=== PATIENT | male | born 1950 | race Caucasian/White ===

== ENCOUNTER → 2019-10-04 13:13 | Outpatient (BNVA) | payer OTHER, SELFPAY | PROVIDERS: Visit Provider Nurse Practitioner Family | DX: E11.9 Type 2 diabetes mellitus without complications (principal); Z09 Encounter for follow-up examination after completed treatment for conditions other than malignant neoplasm; Z12.11 Encounter for screening for malignant neoplasm of colon | CPT/HCPCS: 80053; 80061; 83036; 83721; 85025 ==

== ENCOUNTER → 2020-04-06 11:49 | Outpatient (BNVA) | payer OTHER, SELFPAY | PROVIDERS: Visit Provider Nurse Practitioner Family | DX: G62.9 Polyneuropathy, unspecified (principal); E11.9 Type 2 diabetes mellitus without complications; Z12.5 Encounter for screening for malignant neoplasm of prostate; N52.9 Male erectile dysfunction, unspecified; Z78.9 Other specified health status; R39.11 Hesitancy of micturition; Z68.26 Body mass index [BMI] 26.0-26.9, adult; Z71.89 Other specified counseling | CPT/HCPCS: 80053; 80061; 82043; 83036; 85025; G0103 ==

== ENCOUNTER 2020-05-22 10:44 | Inpatient (IN) | payer OTHER, SELFPAY ==
[2020-05-22] VITALS (48 sets, daily range): BP systolic 89–157; BP diastolic 37–87; PULSE 53–112; RESP 15–36; TEMP 36.9–37.1; O2SAT 87–96; BMI 25.7
--- NOTE | 2020-05-22 11:13 | XRR_ITS ---
PROCEDURE INFORMATION: Exam: XR Chest, 1 View Exam date and time: 05/22/2020 11:51 AM Age: 66 years old Clinical indication: Cough and shortness of breath; Additional info: Cough, SOB covid rule out TECHNIQUE: Imaging protocol: XR of the chest Views: 1 view. COMPARISON: No relevant prior studies available. FINDINGS: Lungs: Interstitial prominence and asymmetric left-sided airspace disease, consistent with infiltrate, in the appropriate clinical setting. Pleural space: No pleural effusion. Heart/Mediastinum: No cardiomegaly. Bones/joints: Mild degenerative change . XR/XR chest 1V portable [id number] IMPRESSION: Interstitial prominence and left-sided airspace disease, consistent with infiltrate, in the appropriate clinical setting.
--- NOTE | 2020-05-22 11:14 | ECG_ITS ---
[facility] Test Date: 2020-05-22 Pat Name: Sabino Capellan Department: Room: Gender: Male Brokerage Clerk: : 1953-12-20 Requested By: Gretchen Gunn Order Number: [id number] Keturah MD: Gloria Mcghee M.D. Measurements Intervals [place] Rate: 73 P: 102 [place]: 204 QRS: -12 QRSD: 100 T: 56 QT: 361 QTc: 398 Interpretive Statements SINUS RHYTHM NONSPECIFIC T-WAVE ABNORMALITY No previous ECG available for comparison Electronically Signed On 05-23-2020 8:20:23 CDT by Gloria Mcghee M.D. [id number]
--- NOTE | 2020-05-22 11:53 | PC.NURSE ---
portable chest xray at bedside
[2020-05-22 12:00] LABS: Basophils % 0.3 %; Hematocrit 42.2 % (42.0-52.0); Hemoglobin 14.3 g/dL (11.7-16.6); Lymphocytes # 0.8 10^3/uL (0.8-4.8); Lymphocytes % 13.1 %; Mean Corpuscular HGB Conc 33.9 g/dL (30.0-36.0); Mean Corpuscular Hemoglobin 30.9 pg (28.0-34.0); Mean Corpuscular Volume 91.1 fL (80-94); Mean Platelet Volume 9.1 fL (7.4-10.4); Monocytes # 0.3 10^3/uL (0.2-0.9); Monocytes % 5.4 %; Neutrophils # 5.04 10^3/uL (1.8-7.7); Neutrophils % 80.9 %; Nucleated Red Blood Cells % 0 %; Platelet Count 201 10^3/cmm (130-400); Red Blood Count 4.63 10^6/uL (4.1-5.3); Red Cell Distribution Width 12.5 % (12.1-15.1); White Blood Count 6.2 10^3/uL (4.0-10.0)
[2020-05-22 12:11] LABS: INR 0.98 (0.8-1.2)
[2020-05-22 12:14] LABS: D Dimer 1.03 ug/mIFEU (0-0.59); Lactic Sepsis W/Reflex 1.3 mmol/L (0.5-2.2)
--- NOTE | 2020-05-22 12:15 | PC.NURSE ---
pt swabbed for covid. pt on droplet isolation precautions. pt visitor vacated building per policy
[2020-05-22 12:17] LABS: Troponin(5th) Baseline 39 ng/L (0-15)
[2020-05-22 12:24] LABS: NT Pro B Type Natriuretic Pept 369 pg/mL (0-125)
[2020-05-22 12:35] LABS: Alanine Aminotransferase 26 U/L (0-41); Alkaline Phosphatase 52 IU/L (40-130); Aspartate Amino Transferase 46 U/L (0-40); Blood Urea Nitrogen 11 mg/dL (8-23); C Reactive Protein 82.6 mg/L (0.0-4.9); Calcium 8.7 mg/dL (8.5-10.5); Carbon Dioxide 26 mmol/L (22-29); Chloride 94 mmol/L (98-107); Globulin 3.2 g/dL (1.3-4.6); Glomerular Filtration Rate 75.2 mL/min (90-130); Glucose 166 mg/dL (65-115); Magnesium 1.9 mg/dL (1.7-2.3); Osmolality Calculated 279 mOsm/kg (285-295); Sodium 133 mmol/L (136-145); Total Bilirubin 0.6 mg/dL (0.15-1.2); Total Protein 7.2 g/dL (6.6-8.7)
[2020-05-22 12:38] LABS: Anion Gap 16.8 (5-19); Potassium 3.8 mmol/L (3.5-5.1)
[2020-05-22 13:06] LABS: Influenza A by IFA Negative (Negative); Influenza B by IFA Negative (Negative); SARS Covid-2 Antigen Positive (Negative)
--- NOTE | 2020-05-22 13:14 | ECG_ITS ---
[facility] Test Date: 2020-05-22 Pat Name: Sabino Capellan Department: Room: Gender: Male Patient Care Provider: : 1953-12-20 Requested By: Gretchen Gunn Order Number: [id number] Keturah MD: Gloria Mcghee M.D. Measurements Intervals [place] Rate: 71 P: [place]: -1 QRS: 8 QRSD: 97 T: 75 QT: 374 QTc: 409 Interpretive Statements SINUS RHYTHM No previous ECG available for comparison Electronically Signed On 05-23-2020 9:02:44 CDT by Gloria Mcghee M.D. [id number]
--- NOTE | 2020-05-22 13:29 | ED_ITS ---
HPI - SOB/Dyspnea General: Chief Complaint: Nausea/Vomiting/Diarrhea Stated Complaint: COUGH N/D Time Seen by Provider: 05/22/20 10:54 History of Present Illness: HPI Narrative: This patient is a 66-year-old male with history of diabetes. He takes oral medications for that. He presents today with a week of feeling very fatigued and tired. He has had general weakness. He complains of cough. He also has had fevers and sweats. He has not been able to do his normal activities because of his symptoms. He is also had some diarrhea. He has not taken his diabetes medicines in the past 2 days because he has not really been able to eat anything. MD elicited complaint: shortness of breath and cough Pertinent past history: diabetes Onset (ago): week(s) (1) Timing: constant and progressively worsening Severity: severe Exacerbating factors: exertion and talking Relieving factors: nothing Known history of: diabetes Associated symptoms: Reports cough, fever(s) and myalgias; Deny abdominal pain, chest pain, nausea or vomiting Treatment prior to arrival: none Review of Systems General: Reports: 10 or more systems reviewed and unremarkable except in HPI and below Const: Reports: fever(s) Eyes: Denies: change in vision ENMT: Denies: odynophagia Card: Denies: chest pain or swelling of feet/ankles Resp: Reports: dyspnea and non-productive cough; Denies: productive cough GI: Denies: abdominal pain, nausea or vomiting : Denies: flank pain Musc: Denies: neck pain or back pain Skin/Breast: Denies: rash Neuro: Denies: headache(s), numbness in extremities or weakness in extremities Lyle/Lymph: Denies: easy bruising or easy bleeding PFSH ED PFSH: Medical History (Updated 05/22/20 @ 15:37 by Abdias Wells MD) BPH (benign prostatic hyperplasia) Diabetes mellitus Surgical History (Updated 05/22/20 @ 15:33 by Abdias Wells MD) History of cholecystectomy Family History (Updated 05/22/20 @ 15:34 by Abdias Wells MD) Other Cancer Social History (Updated 05/22/20 @ 15:34 by Abdias Wells MD) Smoking and tobacco status: never smoked Alcohol intake: never Physical Exam Const: COMMON NORMALS: no acute distress, patient oriented x3, no limitations and alert GENERAL APPEARANCE: cooperative HENMT: HEAD & SCALP: normal to inspection FACE & SINUS: normal facial exam Eye: GENERAL EYE: appearance normal, both eyes and all related structures Neck/C-Spine: COMMON NORMALS: supple, no meningeal signs and no JVD Chest: COMMONS NORMALS: normal inspection of the chest Resp: EFFORT & INSPECTION: Yes tachypneic and Yes labored AUSCULTATION: rhonchi lower bilaterally Cardio: COMMON NORMALS: no JVD, regular rate, regular rhythm and No murmurs present (Cardio) RATE: regular rate RHYTHM: regular rhythm GI: COMMON NORMALS: Normal to inspection, nondistended, normoactive bowel sounds present, Soft to palpation and non-tender INSPECTION: Yes normal to inspection AUSCULTATION: Yes normoactive bowel sounds PALPATION: Yes Soft to palpation Back/Pelvis: COMMON NORMALS: thoracic and lumbar spine normal to inspection Extremity: COMMON NORMALS: normal to inspection Neuro: COMMON NORMALS: patient oriented x3, moves all extremities, no focal motor deficits and no sensory deficits noted SENSORIUM/ORIENTATION: Yes alert MENINGEAL SIGNS: Yes no meningeal signs Psych: COMMON NORMALS: mental status grossly normal, cooperative and normal affect Skin: COMMON NORMALS: no rashes or lesions noted and turgor normal GENERAL SKIN EXAM: no rashes or lesions noted and turgor normal Course ED course: This patient is a generally healthy active 66-year-old. He comes in with a week of fatigue and cough and shortness of breath. He has no known covert exposures. He is generally a pretty well controlled diabetic on oral medications. His initial saturation was 87%. This was on room air. On 4 L nasal cannula he is running 90 to 93%. He does not appear to have any respiratory distress. He is a little bit tachypneic. He was surprised to hear the diagnosis of COVID. He was also surprised that I recommended admission to the hospital but I explained that with his oxygen level being as low as it is he will probably benefit from admission and treatment with Decadron, remdesivir. I also gave him a dose of Lovenox in the ED. He is agreeable to admission. Vital Signs: Vital signs: Vital Signs Temperature 98.3 F 05/24/20 22:12 Pulse Rate 57 L 05/24/20 22:12 Respiratory Rate 24 H 05/24/20 22:12 Blood Pressure 109/69 05/24/20 20:00 Pulse Oximetry 89 L 05/24/20 22:12 MDM - SOB/Dyspnea Lab Data: Labs: Lab Results 05/22/20 05/22/20 05/22/20 Range/Units 11:20 11:20 11:20 WBC 6.2 (4.0-10.0) 10^3/ uL RBC 4.63 (4.1-5.3) 10^6/u L Hgb 14.3 (11.7-16.6) g/dL Hct 42.2 (42.0-52.0) % MCV 91.1 (80-94) fL MCH 30.9 (28.0-34.0) pg MCHC 33.9 (30.0-36.0) g/dL RDW 12.5 (12.1-15.1) % Plt Count 201 (130-400) 10^3/c mm MPV 9.1 (7.4-10.4) fL Neut % (Auto) 80.9 % Lymph % (Auto) 13.1 % [place] % (Auto) 5.4 % Eos % (Auto) 0.0 % Baso % (Auto) 0.3 % Neut # (Auto) 5.04 (1.8-7.7) 10^3/u L Lymph # (Auto) 0.8 (0.8-4.8) 10^3/u L [place] # (Auto) 0.3 (0.2-0.9) 10^3/u L Eos # (Auto) 0.0 (0.0-0.8) 10^3/u L Baso # (Auto) 0.0 (0.0-0.1) 10^3/u L Nucleated RBC % (a uto) 0 % Nucleated RBCs # 0.0 /100WBC PT 13.30 (12.1-14.9) SECO NDS INR 0.98 (0.8-1.2) D-Dimer 1.03 H (0-0.59) ug/mIFE U Sodium 133 L (136-145) mmol/L Potassium 3.8 (3.5-5.1) mmol/L Chloride 94 L (98-107) mmol/L Carbon Dioxide 26 (22-29) mmol/L Anion Gap 16.8 (5-19) BUN 11 (8-23) mg/dL Creatinine 1.0 (0.7-1.2) mg/dL GFR Calculation 75.2 L (90-130) mL/min Glucose 166 H (65-115) mg/dL Calculated Osmolal ity 279 L (285-295) mOsm/k g Lactic Acid (0.5-2.2) mmol/L Calcium 8.7 (8.5-10.5) mg/dL Magnesium 1.9 (1.7-2.3) mg/dL Total Bilirubin 0.6 (0.15-1.2) mg/dL AST 46 H (0-40) U/L ALT 26 (0-41) U/L Alkaline Phosphata se 52 (40-130) IU/L Troponin T Baselin e (0-15) ng/L Troponin T 120 Min edilma (0-15) ng/L Delta Troponin T (0-10) ABS# C-Reactive Protein 82.6 H (0.0-4.9) mg/L NT-Pro-B Natriuret Pep 369 H (0-125) pg/mL Total Protein 7.2 (6.6-8.7) g/dL Albumin 4.0 (3.5-5.2) g/dL Globulin 3.2 (1.3-4.6) g/dL Procalcitonin 0.20 (0-0.5) ng/mL Influenza Type A A g (Negative) Influenza Type B A g (Negative) SARS-CoV-2 Ag (Rap id) (Negative) 05/22/20 05/22/20 05/22/20 Range/Units 11:20 11:20 12:10 WBC (4.0-10.0) 10^3/ uL RBC (4.1-5.3) 10^6/u L Hgb (11.7-16.6) g/dL Hct (42.0-52.0) % MCV (80-94) fL MCH (28.0-34.0) pg MCHC (30.0-36.0) g/dL RDW (12.1-15.1) % Plt Count (130-400) 10^3/c mm MPV (7.4-10.4) fL Neut % (Auto) % Lymph % (Auto) % [place] % (Auto) % Eos % (Auto) % Baso % (Auto) % Neut # (Auto) (1.8-7.7) 10^3/u L Lymph # (Auto) (0.8-4.8) 10^3/u L [place] # (Auto) (0.2-0.9) 10^3/u L Eos # (Auto) (0.0-0.8) 10^3/u L Baso # (Auto) (0.0-0.1) 10^3/u L Nucleated RBC % (a uto) % Nucleated RBCs # /100WBC PT (12.1-14.9) SECO NDS INR (0.8-1.2) D-Dimer (0-0.59) ug/mIFE U Sodium (136-145) mmol/L Potassium (3.5-5.1) mmol/L Chloride (98-107) mmol/L Carbon Dioxide (22-29) mmol/L Anion Gap (5-19) BUN (8-23) mg/dL Creatinine (0.7-1.2) mg/dL GFR Calculation (90-130) mL/min Glucose (65-115) mg/dL Calculated Osmolal ity (285-295) mOsm/k g Lactic Acid 1.3 (0.5-2.2) mmol/L Calcium (8.5-10.5) mg/dL Magnesium (1.7-2.3) mg/dL Total Bilirubin (0.15-1.2) mg/dL AST (0-40) U/L ALT (0-41) U/L Alkaline Phosphata se (40-130) IU/L Troponin T Baselin e 39 H (0-15) ng/L Troponin T 120 Min edilma (0-15) ng/L Delta Troponin T (0-10) ABS# C-Reactive Protein (0.0-4.9) mg/L NT-Pro-B Natriuret Pep (0-125) pg/mL Total Protein (6.6-8.7) g/dL Albumin (3.5-5.2) g/dL Globulin (1.3-4.6) g/dL Procalcitonin (0-0.5) ng/mL Influenza Type A A g (Negative) Influenza Type B A g (Negative) SARS-CoV-2 Ag (Rap id) Positive H (Negative) 05/22/20 05/22/20 Range/Units 12:10 13:31 WBC (4.0-10.0) 10^3/ uL RBC (4.1-5.3) 10^6/u L Hgb (11.7-16.6) g/dL Hct (42.0-52.0) % MCV (80-94) fL MCH (28.0-34.0) pg MCHC (30.0-36.0) g/dL RDW (12.1-15.1) % Plt Count (130-400) 10^3/c mm MPV (7.4-10.4) fL Neut % (Auto) % Lymph % (Auto) % [place] % (Auto) % Eos % (Auto) % Baso % (Auto) % Neut # (Auto) (1.8-7.7) 10^3/u L Lymph # (Auto) (0.8-4.8) 10^3/u L [place] # (Auto) (0.2-0.9) 10^3/u L Eos # (Auto) (0.0-0.8) 10^3/u L Baso # (Auto) (0.0-0.1) 10^3/u L Nucleated RBC % (a uto) % Nucleated RBCs # /100WBC PT (12.1-14.9) SECO NDS INR (0.8-1.2) D-Dimer (0-0.59) ug/mIFE U Sodium (136-145) mmol/L Potassium (3.5-5.1) mmol/L Chloride (98-107) mmol/L Carbon Dioxide (22-29) mmol/L Anion Gap (5-19) BUN (8-23) mg/dL Creatinine (0.7-1.2) mg/dL GFR Calculation (90-130) mL/min Glucose (65-115) mg/dL Calculated Osmolal ity (285-295) mOsm/k g Lactic Acid (0.5-2.2) mmol/L Calcium (8.5-10.5) mg/dL Magnesium (1.7-2.3) mg/dL Total Bilirubin (0.15-1.2) mg/dL AST (0-40) U/L ALT (0-41) U/L Alkaline Phosphata se (40-130) IU/L Troponin T Baselin e (0-15) ng/L Troponin T 120 Min edilma 35.15 H (0-15) ng/L Delta Troponin T -3.85 L (0-10) ABS# C-Reactive Protein (0.0-4.9) mg/L NT-Pro-B Natriuret Pep (0-125) pg/mL Total Protein (6.6-8.7) g/dL Albumin (3.5-5.2) g/dL Globulin (1.3-4.6) g/dL Procalcitonin (0-0.5) ng/mL Influenza Type A A g Negative (Negative) Influenza Type B A g Negative (Negative) SARS-CoV-2 Ag (Rap id) (Negative) Discharge Plan Discharge Patient Disposition: Admitted As Inpatient Admit Provider: Abdias Wells Condition: Stable Discharge Date/Time: 05/22/20 16:30 Coding Level of Care Code ED Qa Consultant for [facility] Fwd Exam Comprehensive
[2020-05-22] MEDS: sodium chloride 0.9% 1,000 ML 150 ML IV ×2 (13:35→22:10)
[2020-05-22] MEDS: enoxaparin 100 mg/mL Syringe 90 MG SUBCUT (13:35)
[2020-05-22] MEDS: dexamethasone 10 mg/mL INJ IVP (13:36)
[2020-05-22 13:54] LABS: Troponin 5 2HR 35.15 ng/L (0-15)
[2020-05-22 14:03] LABS: Troponin 5 2HR Delta -3.85 ABS# (0-10)
--- NOTE | 2020-05-22 14:13 | CT_ITS ---
WS: [id number] CT CHEST ANGIOGRAPHY WITH REFORMATS HISTORY: COVID, possible mass TECHNIQUE: Contiguous axial images are obtained through the chest during arterial injection of intrav enous contrast. Images are reconstructed to evaluate the pulmonary arteries. MIP imaging also reviewe d. All CT scans at [facility] use at least one of these dose optimization techniques: aut omated exposure control; mA and/or kV adjustment per patient size (includes targeted exams where dose is matched to clinical indication); or iterative reconstruction. CONTRAST: Omnipaque 350; 95 mL IV. DLP: 580.13 mGy.cm COMPARISON: None available. Good opacification of the pulmonary arteries. There are no filling defects. No pulmonary embolism. No rmal size aorta. Bilateral groundglass opacifications and partial consolidation throughout all lobes. No discrete mass identified. No pleural effusion. RIGHT hilar enlarged lymph nodes measuring 1.8 cm are probably reactive. Heart is enlarged. Small hiatal hernia. Prior cholecystectomy. CT/CT angio chest PE protcl [id number] IMPRESSION: 1. No pulmonary embolism. 2. Multilobar groundglass attenuation consolidation. Consider Covid 19.
--- NOTE | 2020-05-22 15:31 | P.HP_ITS ---
Providers/Chief Complaint Admitting Physician: Abdias Wells MD Chief Complaint: COUGH N/D History of Present Illness Sabino Fritz is a 66 year old male with history about 6 days of illness. He has had cough. Not productive. Not much congestion. Short of breath today. Very weak, tired. He admits to fevers. Some nausea and loose stools but no diarrhea. While in the emergency department he was found to be hypoxic, placed on 2 L of oxygen, and diagnosed with COVID. He denies any chest pain, or leg tenderness. Review of Systems General: Reports: 10 or more systems reviewed and unremarkable except in HPI and below Const: Reports: fever(s), chills, body aches and malaise Eyes: Denies: change in vision ENMT: Denies: throat pain Card: Denies: chest pain Resp: Reports: dyspnea and non-productive cough GI: Reports: nausea and diarrhea; Denies: abdominal pain : Denies: flank pain Musc: Denies: neck pain Skin/Breast: Denies: rash Neuro: Denies: headache(s) Psych: Denies: anxiety Endo: Denies: polyuria Lyle/Lymph: Denies: easy bruising All/Imm: Denies: urticaria Medications/Allergies Home Medications Medication Instructions Recorded Confirmed Last Taken Type gabapentin 300 mg PO BEDTIME 05/22/20 05/22/20 05/21/20 History glipizide 5 mg PO BID 05/22/20 05/22/20 05/22/20 History metformin 1,000 mg PO BID 05/22/20 05/22/20 05/22/20 History tamsulosin 0.4 mg PO DAILY 05/22/20 05/22/20 05/22/20 History Allergies Allergy/AdvReac Type Severity Reaction Status Date / Time No Known Allergies Allergy Verified 05/22/20 10:50 PFSH Acute PFSH: Medical History (Updated 05/22/20 @ 15:37 by Abdias Wells MD) BPH (benign prostatic hyperplasia) Diabetes mellitus Surgical History (Updated 05/22/20 @ 15:33 by Abdias Wells MD) History of cholecystectomy Family History (Updated 05/22/20 @ 15:34 by Abdias Wells MD) Other Cancer Social History (Updated 05/22/20 @ 15:34 by Abdias Wells MD) Smoking and tobacco status: never smoked Alcohol intake: never Vitals/I&O/Wt Last Vital Signs Temp 98.5 F 05/22/20 10:46 Pulse 112 H 05/22/20 14:36 Resp 26 H 05/22/20 14:36 BP 119/67 05/22/20 14:36 Pulse Ox 92 05/22/20 14:36 Weight last 48 hrs Weight 90.718 kg Physical Exam Narrative: EXAM NARRATIVE: General exam is a white male, no apparent distress HEENT: Pupils equally round. Oropharynx clear. Neck is supple no lymphadenopathy, thyromegaly Cardiovascular regular rate and rhythm without murmur, no S3 or S4 Lungs a few bilateral crackles Abdomen is soft nontender with positive bowel sounds. No obvious organomegaly was deferred Extremities no cyanosis clubbing or edema, cap refill brisk Skin no rash Neuro no focal deficits. Data : 05/22/20 11:20 05/22/20 11:20 Other data: D-dimer 1.03. Lactic acid normal Magnesium level normal AST 46 Troponin 39 with repeat 35 BNP 369 CRP 83 Procalcitonin level 0.2 Rapid COVID positive, influenza negative Chest x-ray with interstitial infiltrates left side predominance CTA pending EKG demonstrates sinus rhythm, normal axis, nonspecific ST-T wave changes A&P Assessment and plan (1) Pneumonia due to COVID-19 virus: Initiate dexamethasone 6 mg IV daily Start Remdesivir Hydration overnight secondary to decreased p.o. intake recently causing mild dehydration Repeat inflammatory levels in the morning Lovenox for DVT prophylaxis Oxygen for supportive care Will review CTA when available. Status: Acute (2) Respiratory failure: Oxygen as needed. Wean as tolerated Status: Acute (3) Elevated troponin: Type II. No significant delta. Status: Acute Additional A&P Information Type 2 diabetes. Sliding scale insulin History of BPH, continue Flomax Full code Lovenox for DVT prophylaxis Attestations Medical Necessity Statement*: Will need greater than 2 midnight stay for treatment of Covid 19 pneumonia Time Spent in Patient Care: Greater than 35 minutes Coding Level of Care Code Acute Glove Machine Operator for [facility] Fwd Diagnoses Pneumonia due to COVID-19 virus U07.1; J12.89 Respiratory failure J96.90 Elevated troponin R79.89
[2020-05-22 16:21] LABS: Add Urine Microscopic? YES; Bilirubin Urine Neg (Negative); Blood Urine Neg (Negative); Glucose Urine UA Norm (Normal); Ketones Urine Negative (Negative); Leukocyte Esterase Urine Negative (Negative); Nitrate Urine Negative (Negative); Protein Urine 1+ (Negative); Urine Appearance Clear (CLEAR); Urine Color Yellow (Yellow); Urobilinogen Urine Norm (Negative); pH Urine 5 (5-7)
[2020-05-22 16:22] LABS: Mucus Urine 3+ /hpf; Squamous Epithelial Cell Urine 0-4 /hpf (0-5); WBC Urine 0-4 /hpf (0-5)
[2020-05-22 16:23] LABS: Add Urine Culture? No; Bacteria Urine 1+ /hpf
--- NOTE | 2020-05-22 17:14 | ECG_ITS ---
[facility] ED Test Date: 2020-05-22 Pat Name: Sabino Fritz Department: Room: ICU19 Gender: Male Director Radio News: : 1953-12-20 Requested By: Gretchen Gunn Order Number: [id number] Keturah MD: Gloria Mcghee M.D. Measurements Intervals [place] Rate: 65 P: 86 [place]: 199 QRS: -20 QRSD: 101 T: 79 QT: 393 QTc: 411 Interpretive Statements SINUS RHYTHM SEPTAL MYOCARDIAL INFARCTION [40+ ms Q WAVE IN V1/V2], PROBABLY OLD No previous ECG available for comparison Electronically Signed On 05-23-2020 8:56:28 CDT by Gloria Mcghee M.D. [id number]
[2020-05-22] MEDS: gabapentin 300 mg Capsule PO (20:34)
[2020-05-23] VITALS (74 sets, daily range): BP systolic 84–128; BP diastolic 40–72; PULSE 46–72; RESP 18–37; TEMP 36–36.9; O2SAT 84–97
[2020-05-23 05:24] LABS: Basophils % 0.2 %; Hematocrit 37.6 % (42.0-52.0); Hemoglobin 12.3 g/dL (11.7-16.6); Lymphocytes % 17.8 %; Mean Corpuscular HGB Conc 32.7 g/dL (30.0-36.0); Mean Corpuscular Hemoglobin 30.3 pg (28.0-34.0); Mean Corpuscular Volume 92.6 fL (80-94); Mean Platelet Volume 9.5 fL (7.4-10.4); Monocytes # 0.5 10^3/uL (0.2-0.9); Monocytes % 8.2 %; Neutrophils # 4.27 10^3/uL (1.8-7.7); Neutrophils % 73.3 %; Nucleated Red Blood Cells % 0 %; Platelet Count 204 10^3/cmm (130-400); Red Blood Count 4.06 10^6/uL (4.1-5.3); Red Cell Distribution Width 12.5 % (12.1-15.1); White Blood Count 5.8 10^3/uL (4.0-10.0)
[2020-05-23 05:57] LABS: Alanine Aminotransferase 27 U/L (0-41); Albumin Level 3.5 g/dL (3.5-5.2); Alkaline Phosphatase 53 IU/L (40-130); Anion Gap 14.4 (5-19); Aspartate Amino Transferase 32 U/L (0-40); Blood Urea Nitrogen 18 mg/dL (8-23); C Reactive Protein 104.2 mg/L (0.0-4.9); Carbon Dioxide 27 mmol/L (22-29); Chloride 99 mmol/L (98-107); Globulin 2.3 g/dL (1.3-4.6); Glomerular Filtration Rate 75.2 mL/min (90-130); Glucose 195 mg/dL (65-115); Osmolality Calculated 289 mOsm/kg (285-295); Potassium 4.4 mmol/L (3.5-5.1); Sodium 136 mmol/L (136-145); Total Bilirubin 0.4 mg/dL (0.15-1.2); Total Protein 5.8 g/dL (6.6-8.7)
[2020-05-23 05:58] LABS: Procalcitonin 0.29 ng/mL (0-0.5)
[2020-05-23 06:09] LABS: Ferritin 473 ng/mL (30-400)
[2020-05-23 06:10] LABS: D Dimer 0.72 ug/mIFEU (0-0.59)
[2020-05-23 08:19] LABS: Glucose Point of Care 137 mg/dL (70-110)
[2020-05-23] MEDS: sodium chloride 0.9% 1,000 ML 150 ML IV (09:09)
[2020-05-23] MEDS: dexamethasone 4 mg Tablet 6 MG PO (09:09)
[2020-05-23] MEDS: zinc gluconate 50 mg Tablet PO (09:10)
[2020-05-23] MEDS: ascorbic acid 500 mg Tablet PO (09:10)
[2020-05-23] MEDS: tamsulosin 0.4 mg Capsule PO (09:10)
[2020-05-23 11:15] LABS: Glucose Point of Care 179 mg/dL (70-110)
--- NOTE | 2020-05-23 13:00 | PC.NURSE ---
pt moved to different room to accommodate heated high flow. pt resting in bed call light within reach. will continue to monitor.
[2020-05-23] MEDS: enoxaparin 40 mg/0.4 mL Syringe SUBCUT (13:40)
--- NOTE | 2020-05-23 14:23 | PM.PN ---
Subjective Subjective: Interval history: Sabino reports he is feeling better than yesterday. Less short of breath, but certainly requiring more oxygen. Medications: Reviewed: Yes Vitals/I&O/Wt Last Vital Signs Temp 97.6 F 05/23/20 08:00 Pulse 66 05/23/20 13:45 Resp 20 H 05/23/20 13:45 BP 112/69 05/23/20 12:00 Pulse Ox 91 05/23/20 13:45 05/22/20 05/23/20 05/23/20 22:59 06:59 14:59 Intake Total 1550 / 1550 1250 / 2800 360 / 360 Output Total 600 / 600 Balance 1550 / 1550 650 / 2200 360 / 360 Weight last 48 hrs Weight 90.718 kg Physical Exam Narrative: EXAM NARRATIVE: General exam is a white male, no apparent distress Cardiovascular regular rate and rhythm without murmur, no S3 or S4 Lungs try crackles bilaterally Abdomen is soft nontender with positive bowel sounds. No obvious organomegaly Extremities no cyanosis clubbing or edema, cap refill brisk Data : 05/23/20 04:40 05/23/20 04:40 A&P Assessment and plan (1) Pneumonia due to COVID-19 virus: Continue dexamethasone 6 mg IV daily Continue Remdesivir At this point hydration can be discontinued CRP higher. Dimer lower. Procalcitonin level normal. Add Levaquin in case superimposed bacterial infection is present as hypoxia is worsening Lovenox for DVT prophylaxis He has progressed to heated high flow at an FiO2 of 55% CTA demonstrated no pulmonary embolism Status: Acute (2) Respiratory failure: Oxygen as needed. Wean as tolerated Status: Acute (3) Elevated troponin: Type II. No significant delta. Status: Acute Additional A&P Information Type 2 diabetes. Sliding scale insulin History of BPH, continue Flomax Full code Lovenox for DVT prophylaxis Attestations Medical Necessity Statement*: Needs continued hospitalization secondary to Covid 19 pneumonia requiring antiviral, steroids, supportive care Coding Level of Care Code Acute Master Control Technician for [facility] Fw Diagnoses Pneumonia due to COVID-19 virus U07.1; J12.89 Respiratory failure J96.90 Elevated troponin R79.89
[2020-05-23] MEDS: levofloxacin-dextrose 5 % 750 MG/150 ML PREMIX 100 MG IV (15:16)
--- NOTE | 2020-05-23 17:07 | PC.NURSE ---
blood sugar taken, results 323.
--- NOTE | 2020-05-23 18:03 | PC.NURSE ---
pt had an uneventful shift. pt educated on laying prone. call light within reach, will continue to monitor.
[2020-05-23 20:26] LABS: Glucose Point of Care 304 mg/dL (70-110)
[2020-05-23] MEDS: gabapentin 300 mg Capsule PO (20:57)
[2020-05-24] VITALS (21 sets, daily range): BP systolic 100–126; BP diastolic 50–90; PULSE 48–65; RESP 13–30; TEMP 36.6–36.9; O2SAT 89–99
--- NOTE | 2020-05-24 01:35 | PC.NURSE ---
Pt oxygen saturation dropped to 85%-87%. High flow turned up to 60 liters previously 50 liters. Patient saturations continued to drop to 85%-87%. Patient turned to prone position improving oxygen saturations to 90%. Will continue to monitor.
--- NOTE | 2020-05-24 02:42 | PC.NURSE ---
Respiratory notified Respiratory called due to patient being SOB and visibly struggling to catch his breath with saturations being 85%-897% on 60 liters 60%. Patient previously laid prone for approximately 1 hr. High flow turned up to 60 liters 70%. Respiratory assessed and notified Dr. Galindo. Dr. Galindo ordered patient to be placed on Bipap. Will continue to monitor.
--- NOTE | 2020-05-24 03:44 | PC.NURSE ---
Pt is resting well on Bipap with no respiratory distress oxygen saturation is 95%. Will continue to monitor.
[2020-05-24 05:28] LABS: Basophils % 0.1 %; Hematocrit 36.4 % (42.0-52.0); Lymphocytes # 1.3 10^3/uL (0.8-4.8); Lymphocytes % 17.6 %; Mean Corpuscular Hemoglobin 30.8 pg (28.0-34.0); Mean Corpuscular Volume 93.3 fL (80-94); Mean Platelet Volume 10.1 fL (7.4-10.4); Monocytes # 0.5 10^3/uL (0.2-0.9); Monocytes % 6.6 %; Neutrophils # 5.35 10^3/uL (1.8-7.7); Neutrophils % 75.3 %; Nucleated Red Blood Cells % 0 %; Platelet Count 217 10^3/cmm (130-400); Red Cell Distribution Width 12.8 % (12.1-15.1); White Blood Count 7.1 10^3/uL (4.0-10.0)
[2020-05-24 05:54] LABS: Alanine Aminotransferase 23 U/L (0-41); Albumin Level 3.3 g/dL (3.5-5.2); Alkaline Phosphatase 51 IU/L (40-130); Anion Gap 15.4 (5-19); Aspartate Amino Transferase 27 U/L (0-40); Blood Urea Nitrogen 24 mg/dL (8-23); Calcium 8.3 mg/dL (8.5-10.5); Carbon Dioxide 26 mmol/L (22-29); Chloride 102 mmol/L (98-107); Globulin 2.9 g/dL (1.3-4.6); Glomerular Filtration Rate 84.2 mL/min (90-130); Glucose 193 mg/dL (65-115); Osmolality Calculated 297 mOsm/kg (285-295); Potassium 4.4 mmol/L (3.5-5.1); Sodium 139 mmol/L (136-145); Total Bilirubin 0.4 mg/dL (0.15-1.2); Total Protein 6.2 g/dL (6.6-8.7)
--- NOTE | 2020-05-24 06:35 | PC.NURSE ---
Patient continuing to removed bipap to urinate and has desate in the 70s. Notified Dr. Galindo and received order for insert urinary catheter.
--- NOTE | 2020-05-24 07:11 | XRR_ITS ---
PROCEDURE INFORMATION: Exam: XR Chest, 1 View Exam date and time: 05/24/2020 8:13 AM Age: 69 years old Clinical indication: Condition or disease; Lung condition and disease; Other: Covid; Additional info: SOB TECHNIQUE: Imaging protocol: XR of the chest Views: Frontal portable upright view of the chest. COMPARISON: CT angio chest PE protcl [id number] 05/22/2020 2:51 PM FINDINGS: Tubes, catheters and devices: EKG leads are present overlying the chest. Lungs: Improved right inferior parahilar atelectasis. Otherwise stable heterogeneous air space opacities in the bilateral lungs (predominating in the peripheral mid upper chest.). The pulmonary vasculature is normal. Pleural space: No pleural effusion. No pneumothorax. Heart/Mediastinum: The heart is normal in size and contour. Mediastinum: Stable. Bones/joints: Stable. Organs: The gallbladder is likely surgically absent, with metallic clips overlying the gallbladder fossa. XR/XR chest 1V portable [id number] IMPRESSION: 1. Improved right inferior parahilar atelectasis. 2. Otherwise stable bilateral pulmonary infiltrates. 3. Prior cholecystectomy.
[2020-05-24 07:46] LABS: ABG PCO2 35.5 mmHg (35-45); ABG PH Result 7.46 (7.35-7.45); Arterial Blood Gas Hematocrit 39.6 % (42-52); Base Excess ABG 1.7 mmol/L (-2.0-2.0); Blood Gas Allen Test Pos; Blood Gas Operator Identificat MONRO; Blood Gas Sample Site Radial, left; Blood Gas Sample Type Arterial; HCO3 ABG 25.3 mmol/L (22-26); Oxygen Device BIPAP; PO2 ABG 71.4 mmHg (80.0-100.0)
[2020-05-24 08:00] LABS: Glucose Point of Care 149 mg/dL (70-110)
[2020-05-24] MEDS: ascorbic acid 500 mg Tablet PO (10:00)
[2020-05-24] MEDS: dexamethasone 4 mg Tablet 6 MG PO (10:00)
[2020-05-24] MEDS: zinc gluconate 50 mg Tablet PO (10:00)
[2020-05-24] MEDS: tamsulosin 0.4 mg Capsule PO (10:04)
--- NOTE | 2020-05-24 11:10 | PC.NURSE ---
patient restless, hearing and cognition preventing him from totally understanding the seriousness of his condition. xray done, churchill placed but the balloon did not inflate and and thus required second churchill placed. he does have occassional bladder spasms now with tiney leak at the urethra. trying to explain that he needs to pronate is difficult for him to understand
[2020-05-24] MEDS: enoxaparin 40 mg/0.4 mL Syringe SUBCUT (12:18)
[2020-05-24 13:13] LABS: Glucose Point of Care 172 mg/dL (70-110)
--- NOTE | 2020-05-24 14:00 | PM.TDS ---
Transfer Summary Providers Date of Admission: 05/22/20 14:13 Date of Discharge: 05/24/20 Attending Provider at Admission: Abdias Wells MD Attending Provider at Transfer: Abdias Wells MD Anticipated Date of Transfer: Anticipated date of transfer: 05/24/20 Receiving Facility & Provider: Receiving Provider: [Dr. Joseph] Receiving facility: [[facility]] Diagnoses at Discharge Discharge Diagnosis (1) Pneumonia due to COVID-19 virus: Status: Acute (2) Respiratory failure: Status: Acute (3) Elevated troponin: Status: Acute Reason for Visit Reason for Visit: COUGH N/D Hospital Course Hospital Course: Mr. Fritz is a 69-year-old white male with diabetes and BPH who presented to the hospital with history of 6 days of illness with cough congestion and ultimately culminating in shortness of breath. In the emergency department he had a rapid COVID test that was positive, and required oxygen for hypoxia. Procalcitonin level was normal. He was placed in the hospital on anticoagulation consisting of Lovenox, oxygen, dexamethasone, remdesivir. He received pulmonary toilet when needed, incentive spirometry, as well as Levaquin in case coexistent bacterial pneumonia was present. During the course of his hospital stay he required more oxygen, starting heated high flow on May 23. Through the night he required such high levels of FiO2 despite pronating that he was placed on BiPAP. During the morning of May 24 he was on 90% FiO2 by BiPAP, proned. Decision at that time was to transfer to [facility] in [place] as it appeared he may need intubated, plasma or other therapies that are not available here. I discussed his case with Dr. Joseph who graciously accepted his care, pending an available bed. In the interim the patient was able to come off BiPAP for a while and be placed back on heated high flow at 70% FiO2 and a flow rate of 45 L/min pending transfer. Physical Exam Narrative: EXAM NARRATIVE: General exam, tachypneic Cardiovascular regular rate and rhythm without murmur Lungs scattered dry crackles Abdomen is soft with positive bowel sounds Extremities no cyanosis clubbing or edema Urinary Catheter Management^: Ward: Cath Placed During This Visit: yes Reason for Continuing Indwelling Catheter: Accurate Measurement of Urinary Output in Critically Ill Patients Urinary Catheter Date of Insertion: 05/24/20 Urinary Catheter Time of Insertion: 07:30 TS Data Data Completed and Pending: Completed Studies During Hospitalization Category Date Time Status CT angio chest PE protcl [id number] Urge nt Cat Scan 05/22/20 14:13 Completed XR chest 1V damien ble [id number] Stat Exams 05/22/20 11:13 Completed XR chest 1V damien ble [id number] Stat Exams 05/24/20 07:11 Completed Pending at discharge Category Date Time Status Complete Blood Co unt w/Auto AM LABS Lab 05/25/20 04:00 Ordered Comprehensive Met abolic Panel AM LA BS Lab 05/25/20 04:00 Ordered Labs from last 24 hours 05/24/20 05/24/20 05/24/20 11:42 07:56 07:33 WBC RBC Hgb Hct MCV MCH MCHC RDW Plt Count MPV Neut % (Auto) Lymph % (Auto) [place] % (Auto) Eos % (Auto) Baso % (Auto) Neut # (Auto) Lymph # (Auto) [place] # (Auto) Eos # (Auto) Baso # (Auto) Nucleated RBC % (a uto) Nucleated RBCs # Specimen Type Arterial Sample Site Radial, left ABG pH 7.46 H ABG pCO2 35.5 ABG pO2 71.4 L ABG HCO3 25.3 ABG Base Excess 1.7 Martín Test Pos Hematocrit 39.6 L O2 Delivery Device Bipap FiO2 90.0 Processing Supervisor ID [place] Sodium Potassium Chloride Carbon Dioxide Anion Gap BUN Creatinine GFR Calculation Glucose POC Glucose 172 149 Calculated Osmolal ity Calcium Total Bilirubin AST ALT Alkaline Phosphata se Total Protein Albumin Globulin 05/24/20 05/24/20 05/23/20 04:45 04:45 20:22 WBC 7.1 RBC 3.90 L Hgb 12.0 Hct 36.4 L MCV 93.3 MCH 30.8 MCHC 33.0 RDW 12.8 Plt Count 217 MPV 10.1 Neut % (Auto) 75.3 Lymph % (Auto) 17.6 [place] % (Auto) 6.6 Eos % (Auto) 0.0 Baso % (Auto) 0.1 Neut # (Auto) 5.35 Lymph # (Auto) 1.3 [place] # (Auto) 0.5 Eos # (Auto) 0.0 Baso # (Auto) 0.0 Nucleated RBC % (a uto) 0 Nucleated RBCs # 0.0 Specimen Type Sample Site ABG pH ABG pCO2 ABG pO2 ABG HCO3 ABG Base Excess Martín Test Hematocrit O2 Delivery Device FiO2 Processing Supervisor ID Sodium 139 Potassium 4.4 Chloride 102 Carbon Dioxide 26 Anion Gap 15.4 BUN 24 H Creatinine 0.9 GFR Calculation 84.2 L Glucose 193 H POC Glucose 304 Calculated Osmolal ity 297 H Calcium 8.3 L Total Bilirubin 0.4 AST 27 ALT 23 Alkaline Phosphata se 51 Total Protein 6.2 L Albumin 3.3 L Globulin 2.9 Vitals: Last Vital Signs Temp 98.5 F 05/24/20 12:29 Pulse 61 05/24/20 13:41 Resp 20 H 05/24/20 13:41 BP 108/58 05/24/20 11:06 Pulse Ox 94 05/24/20 13:41 TS Medications Medications Home Medications gabapentin 300 mg PO BEDTIME 05/22/20 [History Confirmed 05/22/20] glipizide 5 mg PO BID 05/22/20 [History Confirmed 05/22/20] metformin 1,000 mg PO BID 05/22/20 [History Confirmed 05/22/20] tamsulosin 0.4 mg PO DAILY 05/22/20 [History Confirmed 05/22/20] Active Medications Acetaminophen (Tylenol) 650 mg PO Q6H PRN PRN Reason: Mild/Mod Pain Or Temp >/= 101 Albuterol Sulfate (Ventolin) 2 puff INHALATION Q4H.RESPIRATORY PRN PRN Reason: SHORTNESS OF BREATH Albuterol Sulfate (Albuterol) 2.5 mg INHALATION Q4H.RESPIRATORY PRN PRN Reason: SHORTNESS OF BREATH Last Admin: 05/23/20 18:13 Dose: 2.5 mg Documented by: Ascorbic Acid (Vitamin C) 500 mg PO DAILY [facility] Last Admin: 05/24/20 10:00 Dose: 500 mg Documented by: Dexamethasone (Decadron) 6 mg PO DAILY [facility] Last Admin: 05/24/20 10:00 Dose: 6 mg Documented by: Dextrose (D50w) 25 ml IVP ONCE PRN; Protocol PRN Reason: hypoglycemia protocol Dextrose (D50w) 50 ml IVP PRN PRN; Protocol PRN Reason: hypoglycemia protocol Enoxaparin Sodium (Lovenox) 40 mg SUBCUT Q24H [facility] Last Admin: 05/24/20 12:18 Dose: 40 mg Documented by: Gabapentin (Neurontin) 300 mg PO BEDTIME [facility] Last Admin: 05/23/20 20:57 Dose: 300 mg Documented by: Glucagon (Glucagen) 1 mg IM ONCE PRN; Protocol PRN Reason: Adult Acute Hypoglycemia Prot. remdesivir (EUA) 100 mg/ (Sodium Chloride) 100 mls @ 100 mls/hr IV Q24H [facility] Stop: 05/26/20 14:59 Last Infusion: 05/23/20 15:16 Dose: Infused Documented by: Dextrose (D5w) 500 mls @ 100 mls/hr IV ONCE PRN; Protocol PRN Reason: Adult Acute Hypoglycemia Prot Levofloxacin/Dextrose (Levaquin-D5w) 750 mg in 150 mls @ 100 mls/hr IV Q24H ROBBY; Protocol Last Admin: 05/23/20 15:16 Dose: 100 mls/hr Documented by: Insulin Aspart (Novolog) 0 unit SUBCUT WM&BEDTIME ROBBY; Protocol Last Admin: 05/24/20 12:18 Dose: 2 unit Documented by: Ondansetron HCl (Zofran) 4 mg IVP Q6H PRN PRN Reason: vomiting, or N/V if npo Tamsulosin HCl (Flomax) 0.4 mg PO DAILY [facility] Last Admin: 05/24/20 10:04 Dose: 0.4 mg Documented by: Zinc Gluconate (Zinc Gluconate) 50 mg PO DAILY [facility] Last Admin: 05/24/20 10:00 Dose: 50 mg Documented by: Discharge Plan Discharge Patient Disposition: Xfer Short-Term Hosp Condition: Stable Prescriptions: No Action metformin 500 mg tablet 1,000 mg PO BID RF: 0 tamsulosin 0.4 mg capsule 0.4 mg PO DAILY RF: 0 gabapentin 300 mg capsule 300 mg PO BEDTIME RF: 0 glipizide 5 mg tablet 5 mg PO BID RF: 0 Discharge Orders: Transfer Out of Facility (Order); Ordered 05/24/20 Ordered By: Abdias Wells Transfer Attestations Time Spent in Transfer Care*: greater than 30 min Status at Transfer: Cognitive status at transfer: cognitively intact, Quality Metrics Clinical Quality Measures: During this hospital stay, did patient experience: None Coding Level of Care Code Acute [employer] Diagnoses Pneumonia due to COVID-19 virus U07.1; J12.89 Respiratory failure J96.90 Elevated troponin R79.89
[2020-05-24] MEDS: levofloxacin-dextrose 5 % 750 MG/150 ML PREMIX 100 MG IV (14:11)
[2020-05-24 16:37] LABS: Glucose Point of Care 433 mg/dL (70-110)
[2020-05-24 20:40] LABS: Glucose Point of Care 337 mg/dL (70-110)
[2020-05-24] MEDS: gabapentin 300 mg Capsule PO (20:47)
--- NOTE | 2020-05-24 21:54 | PC.NURSE ---
Flight team at bedside for pt discharge. Pt vss on transfer, pt placed on 15 L NR for transport.
--- NOTE | 2020-06-01 15:14 | PC.SOCIAL ---
This signwriter was able to reach the patients Stacey Fritz [phone]. She stated that her is still currently at [facility] and currently is on the vent. I informed her that I will try weekly to contact him to see if he had made it home yet. The phone number in this note is the best number to contact the patient when at home.
--- NOTE | 2020-06-16 14:22 | PC.SOCIAL ---
Called and spoke with the patients , she stated that her has been out of the coma for a week now but has not woke as of yet. She stated that the nurse told her yesterday that he started to run a fever again and they plan to do more scans on him to see where the infection may be. This greeting card writer will call back in a week and check on the patient again.
== END 2020-05-24 22:13 | disposition short-term general hospital (02) | DRG 177 ==
LOC: ER 11:36 → ICU 14:53
PROVIDERS: Emergency Medicine; Admitting Provider Internal Medicine; Visit Provider Internal Medicine
DX: U07.1 COVID-19 (principal); J12.89 Other viral pneumonia; J96.91 Respiratory failure, unspecified with hypoxia; N40.0 Benign prostatic hyperplasia without lower urinary tract symptoms; E11.9 Type 2 diabetes mellitus without complications; Z79.84 Long term (current) use of oral hypoglycemic drugs
CPT/HCPCS: 12345; 36415; 36416; 36600; 51702; 71045; 71275; 80053; 81001; 82728; 82803; 82962; 83605; 83735; 83880; 84145; 84484; 85025; 85378; 85610; 86140; 87426; 87804; 93005; 94640; 94660; 96372; 96375; 99284; J1100; J1650; J1815; J1956; J7030; J7611; J8540